=== PATIENT | female | born 1940 | race Caucasian/White ===

== ENCOUNTER → 2017-01-27 | Day surgery (SDC) | payer MEDICARE ==
[~2017-01-27] MED LIST: ADVA100A INH; ASPI81TA19 PO; ATOR1TAB18 PO; BUPIVACAINE/EPINEPHRINE 0.5% PF 30 ML VIAL ONE; GABA100C4 PO; ISOSULFAN BLUE 50 MG/5 ML VIAL SQ ONE; KETOROLAC TROMETHAMINE 30 MG/ML (IVP) VIAL ONE; LACTATED RINGER'S 1000 ML INJ 1,000 ML ONE; MIDAZOLAM HCL 2 MG/2 ML VIAL ONE; MORPHINE SULFATE 4 MG/ML INJ ONE; ONDANSETRON HCL 4 MG/2 ML VIAL IV PUSH ONE; PROPOFOL 200 MG/20 ML AMP IV ONE; RESP: ALBUTEROL 2.5 MG/3 ML NEB (SCH) ONE; SODIUM CHLORIDE 0.9% INJ 10 ML ONE; TRAZ50TA12 PO; UMEC1INH INH; VENTAER INH; ceFAZolin 2 GM PREMIX 50 ML ONE
--- NOTE | 2017-01-27 12:55 | TN ---
cc: VALENTINA CLAYTON DATE OF SURGERY 01/27/2017 PRINCIPAL DIAGNOSIS Right breast cancer PROCEDURE PERFORMED Right mastectomy and right axillary sentinel lymph node biopsy. SURGEON Valentina Clayton MD ANESTHESIA General via LMA device. INDICATION The patient is a 76-year-old with a clinical stage II right breast cancer who now presents for definitive surgical therapy. She has opted for mastectomy and now presents for the procedure. FINDINGS AT THE TIME OF SURGERY A 2 cm 5 o'clock right breast cancer was identified which did not involve the overlying skin. Five sentinel lymph nodes were identified. #1 was 1+ blue with a count of 613. #2 had a count of 210 and was not blue and #3 had a count of 75 and was not blue. #4 was 1+ blue with a count of 25 and #5 was 1+ blue with a count of 14. Touch prep analysis was not performed. PROCEDURE PERFORMED After informed consent was obtained and site verification was performed, the patient was brought to the radiology suite where she underwent evan tumoral radionuclide injection. She was then brought to the major operating room where she underwent general anesthesia via an LMA device. She was given a single dose of IV Ancef and sequential compression hose were placed. The right breast and arm were prepped and draped in a sterile fashion. 3 cc of half-strength Lymphazurin were injected in the subareolar right breast and a 5-minute massage was performed. An elliptical incision was then marked out and anesthetized and the plane between the subcutaneous fat and anterior breast fascia was identified and infiltrated circumferentially around the breast using a mixture of tumescent solution and 30 cc of 0.5% Marcaine with epinephrine. Sharp dissection was performed in this same plane superiorly to the clavicle, medially to the parasternal area, inferiorly to the anterior rectus sheath, and laterally to the axilla. Electrocautery was then used to dissect the breast off the pectoralis muscle. The breast was amputated in the axilla and marked with the skin anterior, one short suture superiorly, and one long suture laterally and it was then sent as a permanent specimen. There was an area in the upper medial right breast which appeared thickened and this was reexcised using electrocautery and included with the breast specimen. The clavipectoral fascia was then divided and two lymph nodes in the axillary tail of Jean-Baptiste were identified and dissected free from surrounding structures. These two lymph nodes were 1+ blue and became sentinel lymph node number four and five. Some higher mid level I lymph nodes were identified and circumferentially dissected free from surrounding structures using the harmonic scalpel and this became lymph nodes one, two and three. The axillary vein, thoracodorsal, and long thoracic neurovascular bundles were identified and remained intact throughout the dissection as did the intercostal brachial neurovascular bundle. Good hemostasis was noted and a stab wound was created and a 10-Burm[place] Stanton drain was placed along the chest wall and secured to the skin using a 3-0 nylon suture and a drain collar. The wound was closed using an interrupted 3-0 Vicryl subcutaneous suture and a 4-0 Monocryl subcuticular suture. Steri-Strips and a sterile dressing were applied. The patient tolerated the procedure well with an estimated blood loss of 100 cc and she was extubated in the operating room and brought to the recovery room in good condition. All sponge and needle counts were correct at the conclusion of the case. MD CHING Queen/GINA /12:31 PM /12:50 PM RAINA
== END | disposition home or self-care (01) ==
LOC: ESDC 07:16
PROVIDERS: ATTEND Surgery
DX: C50.911 Malignant neoplasm of unspecified site of right female breast (principal)
CPT/HCPCS: 00400; 01610; 19303; 38525; 38792; 88305; 88307; J0690; J1885; J2250; J2270; J2405; J3010; J7120; J7613; Q9968